=== PATIENT | female | born 1970 | race Caucasian/White ===

== ENCOUNTER 2017-06-24 15:24 | Emergency (ER) | payer BC ==
[2017-06-24 15:37] VITALS: BP 125/75; PULSE 61; TEMP 98.2
[2017-06-24] MEDS ORDERED: DIPHTH,PERTUSS(ACELL),TET 0.5 ML DISP.SYRIN IM ONE (16:08)
--- NOTE | 2017-06-24 16:13 | PDOC ---
History of Present Illness - General Chief Complaint: Bite Stated Complaint: LACERATION ON FACE Time Seen by Provider: 06/24/17 15:58 History Source: Patient Exam Limitations: No Limitations - History of Present Illness Initial Comments: 06/24/17 16:13 47 yr female with c/o dog bite to her left cheek from her own puppy that was kissing her and cuddling. Dog is UTD with rabies vaccines. pt has no allergies no PMHX. tetanus is unknown. Timing/Duration: reports: just prior to arrival Severity: Yes: mild Location: reports: face (left cheek ) Past History - Past Medical History Allergies/Adverse Reactions: Allergies Allergy/AdvReac Type Severity Reaction Status Date / Time No Known Allergies Allergy Verified 06/24/17 15:35 Home Medications: Ambulatory Orders Cyclobenzaprine HCl [Flexeril] 5 mg PO Q8H #20 tablet 05/18/12 No Home Medications 0 dose .ROUTE UTDICT 05/18/12 - Psycho/Social/Smoking Cessation Hx Anxiety: No Suicidal Ideation: No Smoking Status: No Smoking History: Never smoked Number of Cigarettes Smoked Daily: 0 Review of Systems - Review of Systems Able to Perform ROS?: Yes Is the patient limited [place] proficient: No Constitutional: No: Symptoms Reported HEENTM: No: Symptoms Reported Respiratory: No: Symptoms reported Cardiac (ROS): No: Symptoms Reported, Lightheadedness ABD/GI: No: Symptoms Reported : No: Symptoms Reported Musculoskeletal: No: Symptoms Reported Integumentary: Yes: See HPI *Physical Exam - Vital Signs Last Vital Signs Temp Pulse Resp BP Pulse Ox 98.2 F 61 18 125/75 100 06/24/17 15:35 06/24/17 15:35 06/24/17 15:35 06/24/17 15:35 06/24/17 15:35 - Physical Exam General Appearance: Yes: Nourished, Appropriately Dressed HEENT: positive: EOMI, DAYANARA Neck: positive: Supple. negative: Tender Respiratory/Chest: positive: Lungs Clear, Normal Breath Sounds Cardiovascular: positive: Regular Rhythm, Regular Rate Integumentary: positive: Other (left cheek with superficial 1cm bite no bleeding ) Procedures - Laceration/Wound Repair Left Face Wound Length: to 2.5 cm Wound Explored: clean Wound's Depth, Shape: superficial Irrigated w/ Saline: Yes Betadine Prep: Yes Progress: 06/24/17 16:15 bacitracin and bandaid placed, wound cleaned with peroxide and betadine Medical Decision Making - Medical Decision Making 06/24/17 16:16 cc: dog bite to face dog is UTD with vaccines pt needs tetanus wound to be cleaned and bacitracin and bandaid placed I have discussed in detail strict wound care and protection from the sun the bite does not require any closure as it is superficial and it is a dog bite pt understands the plan of care all questions asked and answered on discharge *DC/Admit/Observation/Transfer Diagnosis at time of Disposition: Dog bite Qualifiers: Encounter type: initial encounter Qualified Code(s): W54.0XXA - Bitten by dog, initial encounter - Discharge Dispostion Disposition: HOME Condition at time of disposition: Good - Referrals Referrals: Brandy Jarrett MD [Primary Care Provider] - - Patient Instructions Printed Discharge Instructions: DI for Animal Bites Additional Instructions: keep clean and dry clean with antibacterial soap daily such as dial or lever 2000 apply a small amount of bacitracin and bandaid daily until healed keep well protected from the sun watch for any signs of infection, drainage or increased redness or pain return to the ER
== END 2017-06-24 16:19 | disposition home or self-care (01) ==
LOC: JERFT 15:24
PROC: 3E0234Z Introduction of Serum, Toxoid and Vaccine into Muscle, Percutaneous Approach (ICD-10-PCS; principal; 2017-06-24)
DX: S01.459A Open bite of unspecified cheek and temporomandibular area, initial encounter (principal); W54.0XXA Bitten by dog, initial encounter; Y93.89 Activity, other specified; Y92.9 Unspecified place or not applicable
CPT/HCPCS: 90715; 99281-25

== ENCOUNTER 2022-07-10 10:45 | Emergency (ER) | payer BC ==
[2022-07-10 10:54] VITALS: BP 132/73; PULSE 58; RESP 18; TEMP 98.7; BMI 21.9
[2022-07-10] MEDS ORDERED: LIDOCAINE HCL 2% (50ML VIAL) INF ONE (11:47)
[2022-07-10] MEDS ORDERED: LIDOCAINE HCL 2% (20ML MULTI-DOSE VIAL) ONE (11:51)
== END 2022-07-10 12:50 | disposition home or self-care (01) ==
LOC: FER 10:45
DX: K61.0 Anal abscess (principal)
CPT/HCPCS: 36415; 87491; 87591; 99283-25

== ENCOUNTER 2023-03-25 03:50 | Day surgery (SDC) | payer BC ==
[2023-03-21 12:50] VITALS: BMI 22.6
[2023-03-25 10:01] VITALS: RESP 16
[2023-03-25] MEDS ORDERED: MIDAZOLAM HCL 2 MG/2 ML SINGLE DOSE VIAL ONE (11:16)
[2023-03-25] MEDS ORDERED: KETOROLAC TROMETHAMINE 30 MG/1 ML VIAL ONE (11:47)
[2023-03-25] MEDS ORDERED: ONDANSETRON 4 MG/2 ML VIAL ONE (11:47)
[2023-03-25 14:08] VITALS: BP 100/60; PULSE 60; TEMP 97.6
== END 2023-03-25 13:20 | disposition home or self-care (01) ==
LOC: JASU-SURG 03:50
PROVIDERS: ATTEND Urology
PROC: 0TF4XZZ Fragmentation in Left Kidney Pelvis, External Approach (ICD-10-PCS; principal; 2023-03-25 11:00)
DX: N20.0 Calculus of kidney (principal)

== ENCOUNTER 2023-05-06 04:16 | Day surgery (SDC) | payer BC ==
[2023-05-02 15:43] VITALS: BMI 22.6
[2023-05-06 13:23] VITALS: TEMP 97.8
[2023-05-06] MEDS ORDERED: MIDAZOLAM HCL 2 MG/2 ML SINGLE DOSE VIAL ONE (14:52)
[2023-05-06] MEDS ORDERED: ONDANSETRON 4 MG/2 ML VIAL ONE (14:52)
[2023-05-06] MEDS ORDERED: KETOROLAC TROMETHAMINE 30 MG/1 ML VIAL ONE (14:54)
[2023-05-06 15:34] VITALS: RESP 18
[2023-05-06 17:08] VITALS: BP 125/73; PULSE 59
== END 2023-05-06 17:05 | disposition home or self-care (01) ==
LOC: JASU-SURG 04:16
PROVIDERS: ATTEND Urology
PROC: 0TF3XZZ Fragmentation in Right Kidney Pelvis, External Approach (ICD-10-PCS; principal; 2023-05-06 14:30)
DX: N20.0 Calculus of kidney (principal)

== ENCOUNTER 2024-03-30 04:30 | Day surgery (SDC) | payer BC ==
[2024-03-26 12:02] VITALS: BMI 22.7
[2024-03-30 09:34] VITALS: TEMP 97.7
[2024-03-30 09:59] VITALS: RESP 16
[2024-03-30 10:25] VITALS: BP 115/62; PULSE 50
== END 2024-03-30 10:28 | disposition home or self-care (01) ==
LOC: JASU-ENDO 04:30
PROVIDERS: ATTEND Internal Medicine Gastroenterology
PROC: 0DB98ZX Excision of Duodenum, Via Natural or Artificial Opening Endoscopic, Diagnostic (ICD-10-PCS; 2024-03-30)
PROC: 0DB78ZX Excision of Stomach, Pylorus, Via Natural or Artificial Opening Endoscopic, Diagnostic (ICD-10-PCS; 2024-03-30)
PROC: 0DB68ZX Excision of Stomach, Via Natural or Artificial Opening Endoscopic, Diagnostic (ICD-10-PCS; 2024-03-30)
PROC: 0DB28ZX Excision of Middle Esophagus, Via Natural or Artificial Opening Endoscopic, Diagnostic (ICD-10-PCS; 2024-03-30)
PROC: 0DB38ZX Excision of Lower Esophagus, Via Natural or Artificial Opening Endoscopic, Diagnostic (ICD-10-PCS; 2024-03-30)
PROC: 0DBN8ZX Excision of Sigmoid Colon, Via Natural or Artificial Opening Endoscopic, Diagnostic (ICD-10-PCS; principal; 2024-03-30 09:00)
DX: Z12.11 Encounter for screening for malignant neoplasm of colon (principal); K63.5 Polyp of colon; K64.8 Other hemorrhoids; K21.00 Gastro-esophageal reflux disease with esophagitis, without bleeding; K29.50 Unspecified chronic gastritis without bleeding; Z83.719 Family history of colon polyps, unspecified
CPT/HCPCS: 88305-TC; 88342-TC